=== PATIENT | female | born 1935 | race Caucasian/White ===

== ENCOUNTER → 2024-04-29 | Outpatient (CLI) | payer MEDICARE ==
[~2024-04-29] MED LIST: ASPIRIN 32325 MG/TAB PO; CENTRUM SILVER1 CTB PO; CHOLESTEROL MA600 MG PO; CLARITIN 1010 MG/TAB PO; CO Q-1050 MG PO; GLUCOSAMINE & C1 CA1 PO; LIPITOR 10MG10 MG PO; LOPRESSOR 225 MG/TAB PO; LUTEIN + KALE 11 CAP PO; PLAVIX 75MG TAB75 MG PO; TYLENOL 325MG325 MG PO; ZESTRIL 10MG10 MG PO
== END ==
LOC: MC.RAD 09:18
DX: Z12.31 Encounter for screening mammogram for malignant neoplasm of breast (principal)